=== PATIENT | male | born 1955 | race Caucasian/White ===

== ENCOUNTER 2017-01-06 19:40 | Emergency (ER) | payer OTHER ==
[2017-01-06 19:58] VITALS: BP 105/61
--- NOTE | 2017-01-06 20:24 | UC ---
Respiratory Complaint HPI - HPI Summary HPI Summary: Patient has had cough, sob and right sideed pain with deep breaths for 3 days. denies smoking, does not know if he has had a fever, currently afebrile - History of Current Complaint Chief Complaint: UCGeneralIllness Stated Complaint: CHEST CONGESTION/COUGH Time Seen by Provider: 01/06/17 20:01 Hx Obtained From: Patient Onset/Duration: Sudden Onset, Lasting Days Timing: Constant Severity Initially: Mild Severity Currently: Moderate Character: Cough: Nonproductive Aggravating Factors: Exertion, Deep Breaths, Recumbent Position Alleviating Factors: Nothing Associated Signs And Symptoms: Positive: Dyspnea, URI, Nasal Congestion, Hoarseness, Sinus Discomfort - Risk Factors Pulmonary Embolism Risk Factors: Negative Cardiac Risk Factors: Negative Pseudomonas Risk Factors: Negative Tuberculosis Risk Factors: Negative - Allergies/Home Medications Allergies/Adverse Reactions: Allergies Allergy/AdvReac Type Severity Reaction Status Date / Time No Known Allergies Allergy Verified 01/06/17 19:58 Home Medications: Home Medications Aspirin [Aspirin 81 MG TAB] 81 mg PO DAILY 01/06/17 [History Confirmed 01/06/17] PMH/Surg Hx/FS Hx/Imm Hx Endocrine History Of: Reports: Diabetes Denies: Thyroid Disease Cardiovascular History Of: Reports: Cardiac Disorders - Heart is enlarged; 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 [facility] - unsure when this happened. 1977 [facility]CTOMY - Social History Alcohol Use: None Substance Use Type: None Smoking Status (MU): Never Smoked Tobacco Type: Cigarettes Amount Used/How Often: 1 PPD When Did the Patient Quit Smoking/Using Tobacco: 3-4 WKS AGO - Immunization History Most Recent Tetanus Shot: unknown Review of Systems Constitutional: Chills, Fatigue Skin: Negative Eyes: Negative ENT: Sore Throat, Nasal Discharge Respiratory: Shortness Of Breath, Cough Cardiovascular: Negative Gastrointestinal: Negative Genitourinary: Negative Motor: Negative Neurovascular: Negative Musculoskeletal: Myalgia Neurological: Negative Psychological: Negative All Other Systems Reviewed And Are Negative: Yes Physical Exam Triage Information Reviewed: Yes Appearance: Well-Nourished, Ill-Appearing, Pain Distress Vital Signs: Initial Vital Signs Pulse 82 01/06/17 19:52 Resp 22 01/06/17 19:52 BP 105/61 01/06/17 19:52 Pulse Ox 97 01/06/17 19:52 Vital Signs Reviewed: Yes Eyes: Positive: Conjunctiva Clear, Other: - sclear is red bilaterally, no drainage noted, states they feel a little itchy ENT: Positive: Normal ENT inspection, Pharyngeal erythema, Nasal congestion, Other: - bilateral cerumen impaction Dental Exam: Normal Neck exam: Normal Neck: Positive: Supple, Nontender, No Lymphadenopathy Respiratory: Positive: No respiratory distress, No accessory muscle use, Decreased breath sounds - in right lower lobe, Wheezing, Inspiration Cardiovascular Exam: Normal Cardiovascular: Positive: RRR, No Murmur, Pulses Normal Abdominal Exam: Normal Abdomen Description: Positive: Nontender, No Organomegaly, Soft Bowel Sounds: Positive: Present Musculoskeletal Exam: Normal Musculoskeletal: Positive: Strength Intact, ROM Intact, No Edema Neurological Exam: Normal Neurological: Positive: Alert, Muscle Tone Normal Psychological Exam: Normal Psychological: Positive: Normal Response To Family, Age Appropriate Behavior Skin Exam: Normal UC Diagnostic Evaluation - Laboratory O2 Sat by Pulse Oximetry: 97 Respiratory Course/Dx - Course Course Of Treatment: hx obtained, exam performed, meds reviewed, chest xray obtained neg for pneumonia, abx for bronchitis prescribed due to hi co morbidities - Differential Dx/Diagnosis Differential Diagnosis/HQI/PQRI: Asthma, Bronchitis, Influenza, Laryngitis, Sinusitis Provider Diagnoses: bronchitis. right sided rib pain. sinus congestion Discharge - Discharge Plan Condition: Stable Disposition: HOME Patient Education Materials: Acute Bronchitis (ED) Referrals: Kaitlyn CHAN,Alan Prieto [Primary Care Provider] - Additional Instructions: Take the medication as prescribed. Get plenty of rest and increase your fluid intake. I am giving you an some cough medicine to0 take tonight at bedtime.
--- NOTE | 2017-01-06 20:33 | RAD ---
INDICATION: Cough. Short breast. COMPARISON: November 11, 2013 TECHNIQUE: PA and lateral dual-energy views were obtained. FINDINGS: Bones/Soft Tissues: There are no acute bony findings. Cardiomediastinal: The cardiomediastinal silhouette is normal. Lungs: There are no infiltrates. Pleura: There are no pleural effusions. Other: None IMPRESSION: NO ACTIVE DISEASE.
[2017-01-06] MEDS ORDERED: guaiFENesin/CODIEN 100MG-10MG* 5 ML UDC PO ONE ×2 (20:51→21:01)
== END 2017-01-06 21:08 | disposition home or self-care (01) ==
LOC: UCCORT 19:40
DX: J40 Bronchitis, not specified as acute or chronic (principal); I51.7 Cardiomegaly; Z86.73 Personal history of transient ischemic attack (TIA), and cerebral infarction without residual deficits; Z79.82 Long term (current) use of aspirin
CPT/HCPCS: 71020; 99212; A9270-GY; G0463

== ENCOUNTER 2019-04-14 08:07 | Emergency (ER) | payer SELFPAY ==
[2019-04-14 08:36] VITALS: BP 128/80
--- NOTE | 2019-04-14 08:58 | UC ---
Throat Pain/Nasal Dmitriy HPI - HPI Summary HPI Summary: Patient is a 63 year old gentleman, who present today to the urgent care with white spots on his tongue for past 3-4 days. He has a history of type 2 diabetes mellitus on insulin but has been out of his medication for past few months because of his inability to pay. He denies any other symptoms at this time. Denies any fever, chills, cough chest pain or shortness of breath . No diaphoresis. Denies any abdominal pain , nausea or vomiting , diarrhea or constipation. - History of Current Complaint Chief Complaint: [place] Stated Complaint: WHITE SPOTS ON TONGUE Time Seen by Provider: 04/14/19 08:29 Hx Obtained From: Patient Pain Intensity: 2 - Allergies/Home Medications Allergies/Adverse Reactions: Allergies Allergy/AdvReac Type Severity Reaction Status Date / Time No Known Allergies Allergy Verified 04/14/19 08:27 Home Medications: Home Medications Insulin LISPRO* [HumaLOG*] 0 units SUBCUT DIRECTED 04/14/19 [History Confirmed 04/14/19] PMH/Surg Hx/FS Hx/Imm Hx - Additional Past Medical History Additional PMH: Past Medical History : None and cardiomegaly, stroke in 2012, hypertension, diabetes mellitus type 2, hyperlipidemia Past Surgical History: Gallbladder and hernia surgery Family History : Noncontributory Social History : No alcohol, daily smoker, no drug use. Previously Healthy: Yes Other History Of: Negative For: Anticoagulant Therapy - Surgical History Surgical History: Yes Surgery Procedure, Year, and Place: Gallbladder removed 2009. [facility] - unsure when this happened. 1977 APPENDECTOMY - Social History Alcohol Use: None Substance Use Type: None Smoking Status (MU): Heavy Every Day Tobacco Smoker Type: Cigarettes Amount Used/How Often: 1 PPD Have You Smoked in the Last Year: Yes When Did the Patient Quit Smoking/Using Tobacco: 3-4 WKS AGO - Immunization History Most Recent Tetanus Shot: unknown Review of Systems All Other Systems Reviewed And Are Negative: Yes Constitutional: Positive: Negative Skin: Positive: Negative Eyes: Positive: Negative ENT: Positive: Other - White spots on the time Respiratory: Positive: Negative Cardiovascular: Positive: Negative Gastrointestinal: Positive: Negative Genitourinary: Positive: Negative Motor: Positive: Negative Neurovascular: Positive: Negative Musculoskeletal: Positive: Negative Neurological: Positive: Negative Psychological: Positive: Negative Is Patient Immunocompromised?: No Physical Exam - Summary Physical Exam Summary: Physical Exam: Const: Appears well. No signs of apparent distress present. Alert and oriented x 3. Musculo: Walks with a normal gait. Head/Face: Atraumatic, normocephalic on inspection. Eyes: EOMI and PERRLA in both eyes. Conjunctivae clear. No discharge noted ENT: Hearing normal, TM normal appearing bilaterally, There is whitish patches throughout his tongue and the hard palate. No significant erythema in the pharynx. No lymphadenopathy noted. Respiratory: Respirations are unlabored. Lungs clear to auscultation bilaterally, no wheezing , rhonchi or rales noted . CVS: Regular rate and Rhythm, S1S2 normal , no murmurs identified. Extremities: Peripheral circulation is grossly normal. Pulses 2+ Abdomen : Soft non tender , nondistended , Bowel sounds present . No guarding , rebound tenderness or rigidity noted. Skin: No lesions or rash located on the upper extremities or on the lower extremities. Neuro: Cranial nerves II to XII intact, motor and sensory intact. DTR Intact bilaterally. Mood is normal. Affect is normal. Triage Information Reviewed: Yes Vital Signs: Initial Vital Signs Temp 98.8 F 04/14/19 08:31 Pulse 80 04/14/19 08:31 Resp 20 04/14/19 08:31 BP 128/80 04/14/19 08:31 Pulse Ox 98 04/14/19 08:31 Vital Signs Reviewed: Yes Throat Pain/Nasal Course/Dx - Course Course Of Treatment: During the visit today, we obtained his blood sugars twice and it was over range on the glucometer(more than 444 mg/dl) but did not give us the exact blood sugar level. We discussed the findings and further plan. He needs additional testing, thus ER transfer advised and patient agrees. Report called to the ER provider ( Nadia Gonzalez NP) at [facility] advised provider of the history, physical examination, and duration of illness and labs/imaging so far and the need for definitive management. Also we discussed that he is to see his primary care doctor/ social media developer to get his medications. We also discussed that at the ER they can arrange his appointment with [facility] in [place] to arrange for his medications as well. His daughter will drive him to the ER. Patient's vitals are stable at the time of discharge. Patient expressed understanding . - Differential Dx/Diagnosis Provider Diagnosis: Oral thrush, Hyperglycemia due to type 2 diabetes mellitus Discharge - Sign-Out/Discharge Documenting (check all that apply): Patient Departure All imaging exams completed and their final reports reviewed: No Studies - Discharge Plan Condition: Stable Disposition: HOME-RECOMMEND TO ED Patient Education Materials: Oral Candidiasis (ED), Diabetic Hyperglycemia (ED) Referrals: Alan Sahni PA [Primary Care Provider] - Additional Instructions: Patient needs additional testing, thus ER transfer advised and patient agrees. Report called to the ER provider ( Nadia Gonzalez NP) at [facility] advised provider of the history, physical examination, and duration of illness and labs/imaging so far and the need for definitive management. His daughter will drive him to the ER. - Billing Disposition and Condition Condition: STABLE Disposition: Home-Recommend to ED
== END 2019-04-14 09:08 | disposition home health service (06) ==
LOC: UCCORT 08:07
DX: B37.0 Candidal stomatitis (principal); E11.65 Type 2 diabetes mellitus with hyperglycemia; Z79.4 Long term (current) use of insulin; I10 Essential (primary) hypertension; Z86.73 Personal history of transient ischemic attack (TIA), and cerebral infarction without residual deficits; F17.210 Nicotine dependence, cigarettes, uncomplicated
CPT/HCPCS: 99212; G0463

== ENCOUNTER 2021-02-20 14:37 | Observation (INO) ==
[2021-02-20] MEDS ORDERED: NS 0.9% 1000 ml BAG 1,000 ML IV ONE (14:45)
[2021-02-20] MEDS ORDERED: Iodixanol (CONTRAST) 320 MG/ML 100 ML SDV IV ONE (14:50)
[2021-02-20 14:54] LABS: ABS Basophils 0.1 10^3/ul (0-0.2); ABS Eosinophils 0.1 10^3/ul (0-0.6); ABS Lymphocytes 1.6 10^3/ul (1.0-4.8); ABS Monocytes 0.7 10^3/ul (0-0.8); ABS Neutrophils 5.4 10^3/ul (1.5-7.7); Eosinophil % 1.6 %; Hematocrit 54 % (42-52); Hemoglobin 18.6 g/dL (14.0-18.0); Lymphocyte % 20.1 %; Mean Corpuscular HGB Conc 35 g/dL (31-36); Mean Corpuscular Hemoglobin 31 pg (27-31); Mean Corpuscular Volume 90 fL (80-94); Mean Platelet Volume 6.9 fL (7.4-10.4); Nucleated Red Blood Cells % 0.1; Platelet Count 237 10^3/uL (150-450); Red Blood Count 5.96 10^6 /uL (4.18-5.48); Red Cell Distribution Width 14 % (10-15); White Blood Count 7.9 10^3/uL (3.5-10.8)
[2021-02-20 15:02] LABS: Activated Partial Thrombo Time 31.6 seconds (26.0-38.0); INR 0.97 (0.82-1.09)
[2021-02-20 15:18] LABS: Albumin 4.7 g/dL (3.2-5.2); Albumin/Globulin Ratio 1.6 (1-3); Calcium 10.4 mg/dL (8.6-10.3); EGFR African American 88.7 (>60); EGFR Non-African American 73.3 (>60); Globulin 2.9 g/dL (2-4); HDL Cholesterol 35.7 mg/dL; Total Bilirubin 0.7 mg/dL (0.2-1.0); Total Protein 7.6 g/dL (6.4-8.9)
[2021-02-20 15:28] LABS: Troponin I 0.02 ng/mL (<0.03)
[2021-02-20] MEDS ORDERED: Nicotine GUM 4MG FRUIT FLAVOR PO PRN (16:55)
[2021-02-20] MEDS ORDERED: Dextrose 50% Syringe 50 ml 25 GM/50 ML SYRINGE IV PUSH PRN (16:56)
[2021-02-20] MEDS ORDERED: cefTRIAXone 2 GM ADDV.VIAL 2 GM in NS 0.9% 100 ml BAG 100 ML IV SCH (17:00)
[2021-02-20 17:26] LABS: TSH Ultra Thyroid Stim Horm 1.85 mcIU/mL (0.34-5.60)
[2021-02-20] MEDS: Insulin ISOPH/REG 70/30 SUBCUT SCH (20:55)
[2021-02-20] MEDS: Heparin 5000 UNITS/ML 1 mL VIAL SUBCUT SCH (20:56)
[2021-02-21] MEDS: Heparin 5000 UNITS/ML 1 mL VIAL SUBCUT SCH (05:18)
[2021-02-21 05:52] LABS: ABS Basophils 0.1 10^3/ul (0-0.2); ABS Eosinophils 0.1 10^3/ul (0-0.6); ABS Lymphocytes 0.9 10^3/ul (1.0-4.8); ABS Monocytes 0.5 10^3/ul (0-0.8); ABS Neutrophils 3.8 10^3/ul (1.5-7.7); Eosinophil % 2.6 %; Hematocrit 49 % (42-52); Hemoglobin 16.6 g/dL (14.0-18.0); Lymphocyte % 16.3 %; Mean Corpuscular HGB Conc 34 g/dL (31-36); Mean Corpuscular Hemoglobin 31 pg (27-31); Mean Corpuscular Volume 90 fL (80-94); Mean Platelet Volume 6.9 fL (7.4-10.4); Nucleated Red Blood Cells % 0.1; Platelet Count 174 10^3/uL (150-450); Red Blood Count 5.44 10^6 /uL (4.18-5.48); Red Cell Distribution Width 14 % (10-15); White Blood Count 5.4 10^3/uL (3.5-10.8)
[2021-02-21 06:07] LABS: Calcium 9.2 mg/dL (8.6-10.3); EGFR African American 103.8 (>60); EGFR Non-African American 85.8 (>60); Potassium 3.9 mmol/L (3.5-5.0)
[2021-02-21] MEDS ORDERED: Nicotine PATCH 21 MG/24 HR PATCH TRANSDERM SCH (09:00)
[2021-02-21] MEDS ORDERED: Aspirin EC 81 mg TAB.EC (enteric coated) PO SCH (09:00)
[2021-02-21] MEDS: Insulin ISOPH/REG 70/30 SUBCUT SCH (09:13)
[2021-02-21 12:03] VITALS: BP 145/77
[2021-02-21] MEDS ORDERED: Perflutren Lipid Microsphere 3 ML VIAL ONE (12:48)
== END 2021-02-21 13:05 | disposition home or self-care (01) ==
LOC: MEDTELE 14:37 → ED 14:37 → MEDTELE 18:53
PROVIDERS: ADMIT Hospitalist; ATTEND Internal Medicine